=== PATIENT | male | born 1980 | race Two or more races ===

== ENCOUNTER 2018-02-12 09:00 | Emergency (ER) | payer OTHER ==
--- NOTE | 2018-02-12 10:02 | EDPHY ---
H & P Stated Complaint: LLE sciatic pain Time Seen by Provider: 02/12/18 09:48 HPI/ROS: CHIEF COMPLAINT: Left leg pain and weakness HISTORY OF PRESENT ILLNESS: The patient presents to the ED with low back pain, increasing left leg pain and weakness. The patient also is describing paresthesias along the lateral aspect of his left leg. He denies any bowel or bladder dysfunction. The patient denies any fever. He denies IV drug use. The patient denies prior history of back surgery. The patient denies additional acute neurologic complaints. REVIEW OF SYSTEMS: A comprehensive 10 point review of systems is otherwise negative aside from elements mentioned in the history of present illness. Source: Patient Exam Limitations: No limitations - Personal History Current Tetanus/Diphtheria Vaccine: Yes - Medical/Surgical History Hx Asthma: Yes Hx Chronic Respiratory Disease: No Hx Diabetes: No Hx Cardiac Disease: No Hx Renal Disease: No Hx Cirrhosis: No Hx Alcoholism: No Other PMH: Asthma - Social History Smoking Status: Former smoker - Physical Exam Exam: General Appearance: Alert, no distress Eyes: Pupils equal and round no pallor or injection ENT, Mouth: Mucous membranes moist Respiratory: There are no retractions, lungs are clear to auscultation Cardiovascular: Regular rate and rhythm Gastrointestinal: Abdomen is soft and nontender, no masses, bowel sounds normal Neurological: 5/5 strength noted bilateral lower extremities, patient does report sensation loss along the lateral aspect of his left leg Skin: Warm and dry, no rashes Musculoskeletal: Tenderness to palpation in the left lower lumbar spinal region Extremities: symmetrical, full range of motion Psychiatric: Patient is oriented X 3, there is no agitation Constitutional: Initial Vital Signs Temperature (C) 36.7 C 02/12/18 09:15 Heart Rate 80 02/12/18 09:15 Respiratory Rate 18 02/12/18 09:15 Blood Pressure 125/69 H 02/12/18 09:15 O2 Sat (%) 98 02/12/18 09:15 O2 Delivery Mode Room Air Allergies/Adverse Reactions: No Known Allergies Allergy (Unverified 02/12/18 09:17) Home Medications: Medication Instructions Recorded Cyclobenzaprine [Flexeril 10 MG 10 mg PO TID PRN #15 tab 02/12/18 (*)] methylPREDNISolone [Medrol Dose 1 each PO AD #1 ea 02/12/18 Tanvir] Medical Decision Making - Diagnostics Imaging Results: Imaging Impressions Lumbar Spine MRI 02/12/18 09:59 Impression: 1. L5-S1: Left posterior lateral broad-based disk bulge resulting in mild narrowing of the left ventrolateral recess and minimal mass effect upon the left S1 nerve root as it courses towards the neural foramen. 2. Minimal central canal narrowing due to minimal posterior disk bulge. 3. No significant central canal narrowing or discrete disk herniation at any level. Findings discussed with Emergency Department physician, Chris Matt, on 02/12/2018 at 11:17 a.m. ED Course/Re-evaluation: The patient presents to the ED with subjective left leg weakness, paresthesias and back pain. Given the patient's complaints of weakness in the duration of his symptoms for several weeks he did undergo an MRI which demonstrates a lumbar disc herniation in the lower lumbar spine with some neuroforaminal stenosis likely causing his symptoms. Patient has no evidence of significant central canal stenosis. The patient will be treated conservatively with a course of steroids. The patient will be discharged home and given follow up with our on-call neurosurgeon. The patient is given customary aftercare instructions and return precautions. The patient is noted to be neurologically intact without evidence of a clinical cauda equina syndrome. He is referred to Dr. Mesa. He will be discharged home with a prescription for Solu-Medrol and Flexeril. Differential Diagnosis: Differential diagnosis considered includes cauda equina syndrome, lumbar disc herniation, sciatica Departure - Departure Disposition: Home, Routine, Self-Care Clinical Impression: Lumbar disc herniation Condition: Good Instructions: Sciatica (ED) Additional Instructions: 1. Take Ibuprofen or Motrin 600 mg by mouth three times a day. 2. You do have a disc herniation noted on your MRI. We will 1st attempt a trial of oral steroids. If you continue to have ongoing symptoms you should follow up with our bibliographic services specialist as additional treatment such as a spinal injection may be indicated. 3. Return to the ED for severe uncontrolled pain or other concerns. 4. Please contact the neurosurgeon you have been referred to to schedule a follow-up visit. Referrals: Gerard Mesa MD [Medical Doctor] - As per Instructions
[2018-02-12 11:59] VITALS: BP 117/86
== END 2018-02-12 11:56 | disposition home or self-care (01) ==
DX: M51.06 Intervertebral disc disorders with myelopathy, lumbar region (principal); M51.37 Other intervertebral disc degeneration, lumbosacral region